=== PATIENT | female | born 1945 | race Caucasian/White ===

== ENCOUNTER → 2021-11-08 09:10 | Outpatient (CLI) | payer MEDICARE, OTHER, SELFPAY ==
[2021-11-08 19:01] LABS: Add Manual Diff / Slide Review NO; Basophils Absolute Auto 0 /uL (0-100); Eosinophils Absolute Auto 100 /uL (0-450); Eosinophils Percent Auto 2.3 % (2-4); Hematocrit 39.3 % (36-46); Hemoglobin 13.2 g/dL (12.0-16.0); Lymphocytes Absolute Auto 1500 /uL (1100-4500); Lymphocytes Percent Auto 37.4 % (25-40); Mean Corpuscular HGB Conc 33.7 % (30-36); Mean Corpuscular Volume 91.9 fL (80-100); Monocytes Absolute Auto 300 /uL (0-900); Monocytes Percent Auto 6.7 % (3-14); Neutrophils Absolute Auto 2100 /uL (1500-7000); Neutrophils Percent Auto 52.6 % (50-75); Platelet Count 243 X10^3/uL (150-400); Red Blood Cell Count 4.27 X10^6/uL (4.0-5.2); Red Cell Distribution Width 12.8 % (11.6-14.8)
[2021-11-08 19:12] LABS: Alanine Aminotransferase 20 IU/L (<35); Albumin 4.3 g/dL (3.5-5.0); Albumin Globulin Ratio 1.8 (1.0-2.8); Alkaline Phosphatase 88 U/L (38-126); Aspartate Aminotransferase 26 IU/L (14-36); BUN Creatinine Ratio 9.8 (6-22); Bilirubin Total 0.7 mg/dL (0.2-1.3); Blood Urea Nitrogen 5 mg/dL (7-17); Calcium 9.2 mg/dL (8.4-10.2); Carbon Dioxide 28 mmol/L (22-32); Chloride 100 mmol/L (98-107); Cholesterol 215 mg/dL (140-199); Estimated Glomerular Filt Rate > 60.0 mL/min (>60); Globulin 2.4 g/dL (1.7-4.1); Glucose 108 mg/dL (80-110); Potassium 4.1 mmol/L (3.4-5.1); Sodium 134 mmol/L (137-145); Total Protein 6.7 g/dL (6.3-8.2); Triglycerides 70 mg/dL (35-150)
[2021-11-08 19:14] LABS: Erythrocyte Sedimentation Rate 3 MM/HR (0-20)
[2021-11-08 19:16] LABS: High Sensitivity CRP - Cardiac < 0.3 mg/L (1.0-3.0)
[2021-11-08 19:17] LABS: Hemoglobin A1C% w Est Avg Glu 5.4 % (4.0-6.0)
[2021-11-08 19:23] LABS: HEMOLYSIS < 15 (0-50)
[2021-11-08 19:25] LABS: Free T3, Triiodothyronine Free 3.35 pg/mL (2.77-5.27); HDL Cholesterol 115 mg/dL (40-60); LDL Cholesterol Calculated 86 mg/dL (<100)
[2021-11-08 19:38] LABS: Thyroid Stimulating Hormone 1.85 uIU/mL (0.47-4.68)
[2021-11-10 17:06] LABS: Vitamin D 25 Hydroxy (D3) 64.6 ng/mL (30.0-100.0)
== END ==
PROVIDERS: Internal Medicine Cardiovascular Disease; PCP Family Medicine
DX: E78.5 Hyperlipidemia, unspecified (principal); R03.0 Elevated blood-pressure reading, without diagnosis of hypertension; R53.82 Chronic fatigue, unspecified; L57.0 Actinic keratosis
CPT/HCPCS: 80053; 80061; 82306; 83036; 84443; 84481; 85025; 85651; 86140

== ENCOUNTER → 2025-01-08 11:34 | Outpatient (CLI) | payer MEDICARE, OTHER, SELFPAY ==
[2025-01-08 19:48] LABS: Add Manual Diff / Slide Review NO; Basophils Absolute Auto 0 /uL (0-100); Basophils Percent Auto 0.9 % (0-2); Eosinophils Absolute Auto 0 /uL (0-450); Eosinophils Percent Auto 0.7 % (2-4); Hematocrit 38.2 % (36-46); Hemoglobin 13.3 g/dL (12.0-16.0); Lymphocytes Absolute Auto 800 /uL (1100-4500); Lymphocytes Percent Auto 15.9 % (25-40); Mean Corpuscular HGB Conc 34.8 % (30-36); Mean Corpuscular Hemoglobin 31.7 PG (26-34); Monocytes Absolute Auto 400 /uL (0-900); Monocytes Percent Auto 8.1 % (3-14); Neutrophils Absolute Auto 3900 /uL (1500-7000); Neutrophils Percent Auto 74.4 % (50-75); Platelet Count 290 X10^3/uL (150-400); Red Cell Distribution Width 13.3 % (11.6-14.8); White Blood Cell Count 5.3 X10^3/uL (4.5-11.0)
[2025-01-08 19:55] LABS: Alanine Aminotransferase 23 IU/L (<35); Albumin 4.4 g/dL (3.5-5.0); Albumin Globulin Ratio 1.8 (1.0-2.8); Alkaline Phosphatase 104 U/L (38-126); Aspartate Aminotransferase 31 IU/L (14-36); BUN Creatinine Ratio 26.9 (6-22); Bilirubin Total 0.4 mg/dL (0.2-1.3); Blood Urea Nitrogen 14 mg/dL (7-17); Carbon Dioxide 32 mmol/L (22-32); Chloride 89 mmol/L (98-107); Estimated Glomerular Filt Rate > 60 mL/min (>60); Globulin 2.4 g/dL (1.7-4.1); Glucose 121 mg/dL (70-99); HEMOLYSIS < 15 (0-50); Potassium 4.6 mmol/L (3.4-5.1); Sodium 126 mmol/L (137-145); Total Protein 6.8 g/dL (6.3-8.2)
[2025-01-08 20:01] LABS: Bacteria Urine Occasional (0-1); RBC Urine 1-5/HPF (0-5/HPF); Squamous Epithelial Cell Urine 1-5 /HPF (0-5/HPF); Urine Volume 10mL (spun); WBC Urine 1-5/HPF (0-5/HPF)
[2025-01-08 20:02] LABS: Amorphous Sediment Urine 1+; Calcium Oxalate Crystals Urine Few; Culture Indicated Urine Cult Not Indicated
== END ==
PROVIDERS: PCP Family Medicine; Visit Provider Physician Assistant Medical
DX: B99.9 Unspecified infectious disease (principal); R00.2 Palpitations
CPT/HCPCS: 80053; 81015; 85025

== ENCOUNTER → 2025-01-26 09:41 | Outpatient (CLI) | payer MEDICARE, OTHER, SELFPAY | PROVIDERS: PCP Family Medicine; Visit Provider Family Medicine | DX: R39.89 Other symptoms and signs involving the genitourinary system (principal) | CPT/HCPCS: 87086 ==

== ENCOUNTER → 2025-02-09 13:51 | Outpatient (CLI) | payer MEDICARE, OTHER, SELFPAY ==
[2025-02-09 19:39] LABS: Blood Urea Nitrogen 15 mg/dL (7-17); Calcium 9.2 mg/dL (8.4-10.2); Carbon Dioxide 33 mmol/L (22-32); Chloride 94 mmol/L (98-107); Estimated Glomerular Filt Rate > 60 mL/min (>60); Glucose 95 mg/dL (70-99); HEMOLYSIS < 15 (0-50); Potassium 4.6 mmol/L (3.4-5.1); Sodium 131 mmol/L (137-145)
[2025-02-09 19:47] LABS: Hemoglobin A1C% w Est Avg Glu 5.4 % (4.0-6.0)
[2025-02-09 20:12] LABS: Sodium Urine Random 34 mmol/L (30-90)
[2025-02-09 20:16] LABS: Ferritin 31 ng/mL (11-264)
[2025-02-11 15:36] LABS: Osmolality Urine 560 mOsmol/kg (.); Osmolality, Serum 272 mOsmol/kg (280-301)
[2025-02-11 17:10] LABS: Free Kappa Lt Chains, Serum 16.7 mg/L (3.3-19.4); Free Lambda Lt Chains,Serum 17.7 mg/L (5.7-26.3)
[2025-02-12 15:36] LABS: Albumin 3.8 g/dL (2.9-4.4); Alpha-1-Globulin 0.3 g/dL (0.0-0.4); Alpha-2-Globulin 0.7 g/dL (0.4-1.0); Gamma Globulin 1.1 g/dL (0.4-1.8); Globulin Total 2.9 g/dL (2.2-3.9); Immunoglobulin A, Serum 138 mg/dL (64-422); Immunoglobulin G,Serum 862 mg/dL (586-1602); Immunoglobulin M, Serum 78 mg/dL (26-217); Protein, Total 6.7 g/dL (6.0-8.5)
== END ==
PROVIDERS: PCP Family Medicine; Visit Provider Family Medicine
DX: E87.1 Hypo-osmolality and hyponatremia (principal); R73.9 Hyperglycemia, unspecified; R63.4 Abnormal weight loss; R63.1 Polydipsia; R00.2 Palpitations; Z86.2 Personal history of diseases of the blood and blood-forming organs and certain disorders involving the immune mechanism
CPT/HCPCS: 80048; 82728; 82784; 83036; 83883; 83930; 83935; 84155; 84165; 84300; 86334

== ENCOUNTER → 2025-03-19 10:59 | Outpatient (CLI) | payer MEDICARE, OTHER, SELFPAY ==
[2025-03-19 19:40] LABS: Magnesium 2.3 mg/dL (1.6-2.3); Phosphorous 4.4 mg/dL (2.8-4.1); Sodium 131 mmol/L (137-145); Triglycerides 67 mg/dL (35-150)
[2025-03-19 20:13] LABS: Estradiol, Total 13.5 pg/mL
== END ==
PROVIDERS: PCP Family Medicine; Visit Provider Family Medicine
DX: E87.1 Hypo-osmolality and hyponatremia (principal); R41.0 Disorientation, unspecified; R00.2 Palpitations; R53.81 Other malaise; Z13.6 Encounter for screening for cardiovascular disorders; R63.1 Polydipsia; R35.89 Other polyuria
CPT/HCPCS: 82533; 82627; 82670; 83498; 83735; 84100; 84295; 84403; 84478